=== PATIENT | female | born 1970 | race Caucasian/White ===

== ENCOUNTER 2021-09-30 08:10 | Emergency (ER) | payer OTHER, SELFPAY ==
[2021-09-30 08:19] VITALS: BMI 26.6
[2021-09-30 08:21] VITALS: BP 149/97; PULSE 107; RESP 18; TEMP 36.7; O2SAT 95; BMI 26.6
--- NOTE | 2021-09-30 08:21 | XR_ITS ---
PROCEDURE: XR RIBS RT MIN 3V W [id number] CLINICAL INDICATION: FALL Pain COMPARISON: No exams were available for comparison FINDINGS: Frontal view of the chest shows no acute finding. Angulation deformity is noted involving the anterior aspect of the right 11th rib suggesting nondisplaced fracture. Please correlate as the patient's area of pain and tenderness. IMPRESSION: Possible nondisplaced right 11th rib fracture Dictated by: Hill Varma MD 09/30/2021 09:27 Hill Varma MD in [place] 09/30/2021 09:27
[2021-09-30 08:31] VITALS: BP 152/94; PULSE 98; O2SAT 96
--- NOTE | 2021-09-30 08:50 | PC.NURSE ---
Pt went to xray
--- NOTE | 2021-09-30 10:10 | HMH.EDGENADL ---
ED Disposition Clinical Impression: Rib fracture, Fall Disposition: Home, Self-Care Condition on Discharge: Good Instructions: DI for Acute Pain -- Adult Referrals: Maru Tubbs [Primary Care Provider] - - Critical Care Critical Care Time: No Attestation: On 09/30/21, the high probability of a clinically significant, sudden or life threatening deterioration of the following system(s) required my full and direct attention, intervention and personal management. The time I documented below is in addition to time spent performing reported procedures but includes the following listed in this critical care notation. Medical Decision Making - Zhen Inquiry Pt receiving controlled substance: No Vital Signs: 09/30/21 08:21 09/30/21 08:31 Temperature 98.0 F Temperature Source Oral Pulse Rate 98 H Pulse Rate [Right Radial] 107 H Respiratory Rate 18 Blood Pressure 152/94 H Blood Pressure [Right Arm] 149/97 H Blood Pressure Mean 108 Blood Pressure Mean [Right Arm] 114 Blood Pressure Source [Right Arm] Automatic Cuff Blood Pressure Position [Right Arm] Sitting 02 Sat by Pulse Oximetry 95 96 Oxygen Delivery Method Room Air Orders (Tests/Meds): ED MEDICATIONS Generic Name Dose Route Start Last Admin Trade Name Freq PRN Reason Stop Dose Admin Methocarbamol 500 mg 09/30/21 09:00 09/30/21 08:46 Methocarbamol 500mg Tablet PO 10/30/21 08:59 500 mg BID PREMA Administration Discontinued Medications Generic Name Dose Route Start Last Admin Trade Name Freq PRN Reason Stop Dose Admin Acetaminophen 1,000 mg 09/30/21 08:22 09/30/21 08:25 Acetaminophen 500mg Tab PO 09/30/21 08:23 1,000 mg ONCE ONE Administration Ketorolac Tromethamine 15 mg 09/30/21 08:35 09/30/21 08:42 Ketorolac 30mg/Ml Vial IM 09/30/21 08:36 15 mg ONCE ONE Administration Lidocaine 1 each 09/30/21 08:36 09/30/21 08:46 Lidocaine 5% Transdermal Patch TP 09/30/21 08:37 1 each ONCE ONE Administration Medical Decision Narrative: 51-year-old female with no reported past medical history presents for right-sided chest pain after a mechanical fall standing landing on her right side. Denies head or neck injury or LOC. Differential diagnosis includes but is not limited to muscular strain, pneumothorax, muscular spasm, rib fracture. GCS 15, no acute distress, hemodynamically stable, well-appearing. In Toradol, Robaxin, Tylenol, topical lidocaine patch. Pain controlled and improved here in the ED. On reassessment, remains hemodynamically stable, on room air, no acute distress. Chest x-ray was obtained and shows a nondisplaced right 11th rib fracture. Was supplied a rib binder here in the ED. Advised to take home p.o. analgesics such as Tylenol/ibuprofen needed for pain. Given ED return precautions. General Adult HPI - General Chief complaint: PAIN Stated complaint: rt sided abd pains Time Seen by Provider: 09/30/21 08:40 Mode of Arrival: Wheelchair Source of Information: Patient Limitations: No Limitations Description of Symptoms (Recalled from ER Triage Doc. by RN): Pt stated that she was trying to go up steps, and missed the step and hit her right shoulder and ribs. She stated that she did not hit her head. - History of Present Illness HPI narrative: 51-year-old female no reported past medical history for evaluation of right-sided chest pain after fall from standing. Patient states she was going into work earlier today when she missed a step and fell onto her right chest onto wooden steps. She did not hit her head or neck or lose consciousness. She was able to get up on her own and was ambulatory afterward but had persistent pain along her right lower chest along her rib cage that intermittently radiates to her middle chest. Patient thinks her rib is broken. She states it hurts when she takes a deep breath or with movement of her torso. She also scraped her right foot this fall.
[2021-09-30 10:53] VITALS: BP 129/94; PULSE 78; RESP 18; TEMP 37.1; O2SAT 94
== END 2021-09-30 10:53 | disposition home or self-care (01) ==
PROVIDERS: Emergency Provider Student in an Organized Health Care Education/Training Program; PCP Nurse Practitioner Family
DX: S22.31XA Fracture of one rib, right side, initial encounter for closed fracture (principal); W10.9XXA Fall (on) (from) unspecified stairs and steps, initial encounter; Y92.019 Unspecified place in single-family (private) house as the place of occurrence of the external cause
CPT/HCPCS: 71101; 99282

== ENCOUNTER → 2022-02-12 14:12 | Outpatient (CLI) | payer OTHER, SELFPAY ==
--- NOTE | 2022-02-12 14:16 | XR_ITS ---
FINAL REPORT CLINICAL HISTORY: heel/achilles pain FINDINGS: RIGHT ANKLE: Three views of the right ankle were obtained. There is no acute fracture or dislocation. The joint spaces and mortise are intact. There are small calcaneal spurs. There is no soft tissue abnormality. IMPRESSION: No acute bony abnormality. Reviewed, Interpreted and Dictated by Gerardo Montano III, MD Transcribed by Kath Engle Authenticated by Gerardo Montano III, MD on 02/12/2022 03:29:03 PM [facility]
== END ==
PROVIDERS: PCP Nurse Practitioner Family; Visit Provider Podiatrist
DX: M79.673 Pain in unspecified foot (principal)
CPT/HCPCS: 73610